=== PATIENT | female | born 1970 ===

== ENCOUNTER 2020-09-01 18:02 | Emergency (ER) | payer SELFPAY ==
[2020-09-01 18:50] LABS: #Basophils 0.1 thou/uL (0.0-0.2); #Eosinphils 0.1 thou/uL (0.0-0.7); #Lymphocytes 2.7 thou/uL (1.20-3.40); #Monocytes 0.4 thou/uL (0.11-0.59); #Neutrophils 2.9 thou/uL (1.40-6.50); %Basophils 1.2 % (0.0-1.0); %Monocytes 6.1 % (0.0-10.0); %Neutrophils 46.8 % (42.0-75.0); Mean Corpuscular HGB CONC 32.7 g/dL (32.0-36.0); Mean Corpuscular Hemoglobin 27.5 pg (27.0-31.0); Mean Corpuscular Volume 84.1 fL (78.0-98.0); Mean Platelet Volume 7.7 fL (7.4-10.4); Platelet Count 152 thou/uL (130-400); Red Blood Cell (RBC) Count 5.11 mill/uL (4.20-5.40); White Blood Cell (WBC) Count 6.1 thou/uL (4.8-10.8)
[2020-09-01 18:51] LABS: Platelet Morphology Comment PLATELERT CLUMPING PRESENT
[2020-09-01 18:53] LABS: MDiff Complete? YES; Manual Diff?? NO
[2020-09-01 18:55] LABS: ALT (SGPT) 10 U/L (8-55); AST (SGOT) 9 U/L (5-34); Alkaline Phosphatase 60 U/L (40-110); Anion Gap 13 mmol/L (10-20); BUN (Urea Nitrogen) 10 mg/dL (9.8-20.1); Bilirubin, Total 0.3 mg/dL (0.2-1.2); Calc. Creatinine Clearance 0 mL/min (70-130); Calcium 9.6 mg/dL (7.8-10.44); Carbon Dioxide 27 mmol/L (22-29); Chloride 102 mmol/L (98-107); Globulin 3.4 g/dL (2.4-3.5); Glucose 228 mg/dL (70-105); Potassium 3.8 mmol/L (3.5-5.1); Protein, Total 7.4 g/dL (6.0-8.3); Sodium 138 mmol/L (136-145)
[2020-09-01] MEDS ORDERED: Metoclopramide HCl 10 MG/2 ML VIAL ONE (19:37)
[2020-09-01] MEDS ORDERED: diphenhydrAMINE 50 MG/ML VIAL ONE (19:37)
[2020-09-01] MEDS ORDERED: Sodium Chloride 0.9% 500 ML ONE (19:37)
[2020-09-01] MEDS ORDERED: Acetaminophen 500 MG TAB ONE (19:37)
== END 2020-09-01 23:08 | disposition home or self-care (01) ==
LOC: MADERS 18:02
DX: I10 Essential (primary) hypertension (principal); R07.9 Chest pain, unspecified; M79.89 Other specified soft tissue disorders; R51.9 Headache, unspecified; E11.65 Type 2 diabetes mellitus with hyperglycemia
CPT/HCPCS: 36415; 70450; 71045; 80053; 84484; 85025; 93005; 96365; 96375; J1200; J2765; J7030